=== PATIENT | male | born 1990 | race Caucasian/White ===

== ENCOUNTER 2023-12-26 22:24 | Emergency (ER) | payer OTHER ==
[2023-12-26 22:32] VITALS: PULSE 112; RESP 18; TEMP 98.3; BMI 27.3
[2023-12-26 23:32] LABS: URINE APPEARANCE CLOUDY; URINE COLOR RED
[2023-12-26 23:33] LABS: URINE GLUCOSE (UA) NEGATIVE (NEGATIVE); URINE UROBILINOGEN 0.2 mg/dL (0.2-1.0)
[2023-12-26 23:35] LABS: URINE BILIRUBIN 1+ (NEGATIVE); URINE PROTEIN 3+ (NEGATIVE)
[2023-12-26 23:36] LABS: URINE RBC >100 /hpf (0-4)
[2023-12-27 00:28] LABS: BASO % 0.5 % (0-2.0); EOS % 0.2 % (0-4.5); HEMOGLOBIN 16.4 GM/dL (11.7-16.9); LYMPH % 19.6 % (8-40); MCH 29.6 pg (25.7-33.7); MCHC 33.5 g/dl (32.0-35.9); MEAN CELL VOLUME 88.1 fl (80-96); MEAN PLT VOLUME 7.2 fl (7.5-11.1); MONO % 6.3 % (3.8-10.2); NEUT % 73.4 % (42.8-82.8); PLATELET COUNT 226 10^3/uL (134-434); RBC 5.56 M/mm3 (4.00-5.60); RDW 13.3 % (11.9-15.9); WHITE BLOOD COUNT 6.5 K/mm3 (4.0-10.0)
[2023-12-27 02:04] VITALS: BP 147/105
== END 2023-12-27 02:06 | disposition home or self-care (01) ==
LOC: JER 22:24
DX: R31.0 Gross hematuria (principal); N50.811 Right testicular pain
CPT/HCPCS: 36415; 76856-TC; 76870-TC; 81003; 85025; 85027; 87086; 87491; 87591; 99284-25